=== PATIENT | female | born 1935 | race Caucasian/White ===

== ENCOUNTER 2018-12-25 16:46 | Inpatient (IN) | payer MEDICARE, BC ==
[2018-12-25] MEDS ORDERED: PANTOPRAZOLE 40 MG/10 ML VIAL IVP STA (17:04)
[2018-12-25] MEDS ORDERED: NALOXONE 0.4 MG/ML 1 ML VIAL IV PRN (17:12)
--- NOTE | 2018-12-25 17:17 | ED ---
General Adult HPI - General Chief complaint: GI Bleed Stated complaint: GI Bleed Source: patient, EMS, RN notes reviewed, old records reviewed Mode of arrival: EMS Limitations: no limitations - History of Present Illness Initial comments: 83-year-old female presents as transfer from outside hospital. Patient was found to have anemia, with GI bleed. Patient describes 2 weeks of melanotic stool. She reports some dizziness and lightheadedness. Denies chest pain or shortness of breath. Workup at outside emergency department found an INR of 4.2 and hemoglobin 6.4. Patient does take Coumadin for history of left arm DVT. She was given 2 units of FFP, 2 units of packed RBCs, and 10 mg of vitamin K. Transferred for further evaluation treatment. Patient denies any specific complaints at the time my evaluation. - Related Data Home Medications Medication Instructions Recorded Confirmed DULoxetine HCL [Cymbalta] 30 mg PO DAILY 12/25/18 12/25/18 Donepezil [Aricept] 10 mg PO HS 12/25/18 12/25/18 Metoprolol Tartrate [Lopressor] 25 mg PO BID 12/25/18 12/25/18 Warfarin [Coumadin] 3 mg PO DAILY 12/25/18 12/25/18 Allergies Allergy/AdvReac Type Severity Reaction Status Date / Time Penicillins Allergy Unknown Verified 12/25/18 16:59 Sulfa (Sulfonamide Allergy Unknown Verified 12/25/18 16:59 Antibiotics) Review of Systems ROS Statement: Those systems with pertinent positive or pertinent negative responses have been documented in the HPI. ROS Other: All systems not noted in ROS Statement are negative. Past Medical History Past Medical History: GI Bleed, Hypertension History of Any Multi-Drug Resistant Organisms: None Reported Past Surgical History: Appendectomy, Back Surgery, Cholecystectomy, Hysterectomy, Orthopedic Surgery Smoking Status: Never smoker Past Alcohol Use History: None Reported Past Drug Use History: None Reported General Exam Limitations: no limitations General appearance: alert, in no apparent distress Head exam: Present: atraumatic, normocephalic Eye exam: Present: normal appearance, PERRL ENT exam: Present: normal exam Neck exam: Present: normal inspection Respiratory exam: Present: normal lung sounds bilaterally. Absent: respiratory distress Cardiovascular Exam: Present: regular rate, normal rhythm GI/Abdominal exam: Present: soft. Absent: distended, tenderness, guarding Extremities exam: Present: normal inspection, normal capillary refill Neurological exam: Present: alert, oriented X3, CN II-XII intact. Absent: motor sensory deficit Psychiatric exam: Present: normal affect, normal mood Skin exam: Present: warm, dry, intact. Absent: cyanosis, diaphoretic Course Vital Signs 12/25/18 16:57 Temperature 98.6 F Pulse Rate 76 Respiratory 18 Rate Blood Pressure 198/105 O2 Sat by Pulse 97 Oximetry Medical Decision Making - Medical Decision Making 83 -year-old female presenting with GI bleed, melanotic stool, supratherapeutic INR. Patient was transfused 2 units packed RBCs prior to arrival. She is given 2 units of fresh frozen plasma and 10 mg vitamin K. INR was 4.2 and hemoglobin 6.4 prior to transfer. She is continued on Protonix emergency department. Patient will have repeat laboratory testing in the emergency department, these labs are pending. Repeat laboratory testing will be ordered for the morning. Patient will be admitted with gastroenterology on consult. Case discussed with Dr. Pandya who will accept admission. Disposition Clinical Impression: Melena Disposition: ADMITTED IP TO THIS [facility] Condition: Stable Is patient prescribed a controlled substance at d/c from ED?: No Referrals: Kan Simmons MD [Primary Care Provider] - 1-2 days Decision to Admit Reason: Admit from EC Decision Date: 12/25/18 Decision Time: 17:17
[2018-12-25] MEDS: MORPHINE SULFATE 4 MG/ML SYRINGE IV PRN (17:33)
[2018-12-25] MEDS: SODIUM CHLORIDE 0.9% 1,000 ML IV SCH (17:34)
[2018-12-25 19:01] LABS: Anisocytosis Slight; Basophils % (A) 0 %; Eosinophils # (A) 0.2 k/uL (0-0.7); Eosinophils % (A) 3 %; HCT 24.9 % (34.0-46.0); HGB 8.1 gm/dL (11.4-16.0); Lymphocytes # (A) 1.1 k/uL (1.0-4.8); Lymphocytes % (A) 14 %; MCH 27.6 pg (25.0-35.0); MCHC 32.5 g/dL (31.0-37.0); MCV 84.9 fL (80.0-100.0); Mean Platelet Volume 7.7; Monocytes # (A) 0.5 k/uL (0-1.0); Monocytes % (A) 6 %; Neutrophils # (A) 5.8 k/uL (1.3-7.7); Neutrophils % (A) 75 %; Platelet Count 274 k/uL (150-450); RBC 2.93 m/uL (3.80-5.40); RDW 19.8 % (11.5-15.5); WBC 7.7 k/uL (3.8-10.6)
[2018-12-25 19:10] LABS: Albumin 3.1 g/dL (3.5-5.0); Calcium 8.7 mg/dL (8.4-10.2); Magnesium 1.9 mg/dL (1.6-2.3); Potassium 4.2 mmol/L (3.5-5.1); Total Bilirubin 1.2 mg/dL (0.2-1.3); Total Protein 5.7 g/dL (6.3-8.2)
[2018-12-25 19:17] LABS: INR 2.2 (<1.2); Prothrombin Time 21.5 sec (9.0-12.0)
[2018-12-25 20:36] VITALS: BMI 29.3
[2018-12-25] MEDS: PANTOPRAZOLE 40 MG/10 ML VIAL IVP SCH (21:21)
[2018-12-25] MEDS: METOPROLOL TARTRATE 25 MG TAB PO SCH (21:21)
[2018-12-25] MEDS: DULoxetine HCL 30 MG CAPSULE.DR PO SCH (21:21)
[2018-12-25] MEDS: DONEPEZIL 10 MG TAB PO SCH (21:21)
[2018-12-26] MEDS ORDERED: ACETAMINOPHEN TAB 500 MG TAB PO PRN (00:59)
[2018-12-26] MEDS ORDERED: ALPRAZolam 0.25 MG TAB PO PRN (00:59)
[2018-12-26 02:08] LABS: Anisocytosis Moderate; Basophils % (A) 0 %; Eosinophils # (A) 0.2 k/uL (0-0.7); Eosinophils % (A) 3 %; HCT 25.8 % (34.0-46.0); HGB 8.2 gm/dL (11.4-16.0); Hypochromasia Slight; Lymphocytes # (A) 1.2 k/uL (1.0-4.8); Lymphocytes % (A) 17 %; MCH 27.1 pg (25.0-35.0); MCHC 31.7 g/dL (31.0-37.0); MCV 85.4 fL (80.0-100.0); Mean Platelet Volume 7.7; Monocytes # (A) 0.5 k/uL (0-1.0); Monocytes % (A) 7 %; Neutrophils # (A) 4.9 k/uL (1.3-7.7); Neutrophils % (A) 71 %; Platelet Count 251 k/uL (150-450); RBC 3.02 m/uL (3.80-5.40); RDW 20.3 % (11.5-15.5); WBC 6.9 k/uL (3.8-10.6)
[2018-12-26 06:44] LABS: Anisocytosis Moderate; Basophils % (A) 0 %; Eosinophils # (A) 0.3 k/uL (0-0.7); Eosinophils % (A) 4 %; HCT 25.5 % (34.0-46.0); HGB 8.1 gm/dL (11.4-16.0); Hypochromasia Moderate; Lymphocytes # (A) 1.1 k/uL (1.0-4.8); Lymphocytes % (A) 17 %; MCH 28.2 pg (25.0-35.0); MCV 88.2 fL (80.0-100.0); Mean Platelet Volume 8.1; Monocytes # (A) 0.3 k/uL (0-1.0); Monocytes % (A) 5 %; Neutrophils # (A) 4.5 k/uL (1.3-7.7); Neutrophils % (A) 71 %; Platelet Count 281 k/uL (150-450); RBC 2.89 m/uL (3.80-5.40); RDW 21.4 % (11.5-15.5); WBC 6.4 k/uL (3.8-10.6)
[2018-12-26 06:55] LABS: INR 1.5 (<1.2); Prothrombin Time 15.1 sec (9.0-12.0)
[2018-12-26 07:06] LABS: Albumin 3.2 g/dL (3.5-5.0); Calcium 8.9 mg/dL (8.4-10.2); Potassium 4.2 mmol/L (3.5-5.1); Total Bilirubin 0.9 mg/dL (0.2-1.3); Total Protein 5.8 g/dL (6.3-8.2)
--- NOTE | 2018-12-26 08:42 | HP ---
HISTORY AND PHYSICAL DATE OF SERVICE: 12/25/2018 CHIEF COMPLAINTS: Anemia and melena. HISTORY OF PRESENT ILLNESS: This 83-year-old woman with a past medical history of multiple medical problems including history of hypertension, GI bleed, back surgery, DJD, being followed by Dr. Perez in the [facility], was taking Coumadin for a long time because of the DVT of the left upper limb. The patient went to check for Coumadin level, but patient felt woozy and the patient went to the emergency room and was found to have hemoglobin of 6.4, and INR was 4.2. Patient got fresh frozen plasma and as well as 2 units transfusion as well as 10 mg vitamin K and the patient was transferred to [facility] and admitted for further evaluation and treatment. There is no history of fever, rigors or chills. No history of headache, loss of consciousness, seizures. Patient had some 2 weeks of melanotic stools at this time. The patient did not have any Gastroenterology workup before. There is no history of fever, rigors. No history of headache, loss of consciousness, seizures. PAST MEDICAL HISTORY: Hypertension, history of appendectomy, back surgery, cholecystectomy and hysterectomy. MEDICATIONS: Prior to admission include home medications are: 1. Cymbalta 30 mg q.h.s. 2. Coumadin 3 mg daily. 3. Lopressor 25 mg b.i.d. 4. Aricept 10 mg q.h.s. ALLERGIES: PENICILLIN AND SULFA. FAMILY HISTORY: History of myocardial infarction, breast cancer in the family. SOCIAL HISTORY:: No history of smoking, no history of alcohol. REVIEW OF SYSTEMS: ENT: Diminished hearing and diminished vision. CARDIOVASCULAR: No angina. No palpitations. RESPIRATORY: As mentioned earlier. GI no nausea or vomiting. as mentioned earlier. NERVOUS SYSTEM: No numbness or weakness. Otherwise as mentioned earlier. : As mentioned earlier. ALLERGY/IMMUNOLOGY: No asthma or hayfever. MUSCULOSKELETAL as mentioned earlier. HEMATOLOGY/ONCOLOGY: No history of anemia. ENDOCRINE: No history of diabetes or hypothyroidism. CONSTITUTIONAL: As mentioned earlier . Dermatology: Negative. Rheumatology: Negative. Psychiatry: Negative. PHYSICAL EXAMINATION: Alert and oriented x3, pulse 66, blood pressure 141/75, respiration 18, temperature 98.1, pulse ox 96% on room air. HEENT: Conjunctivae pale. Oral mucosa moist. NECK is no jugular venous distention. No carotid bruit. No lymph node enlargement. Cardiovascular system: S1, S2 muffled. Ejection systolic murmur. RESPIRATORY: Breath sounds diminished in the bases. A few rhonchi. No crackles. ABDOMEN: Soft, nontender. No mass palpable. Legs: No edema. No swelling. CENTRAL NERVOUS SYSTEM: Higher functions as mentioned earlier. Moves all four extremities. No focal motor or sensory deficits. Lymphatics: No lymph nodes palpable in the neck, axillae or groin. SKIN: No ulcer, no rash, no bleeding. JOINTS: No active deforming arthropathy. LAB STUDIES: WBC 7.7, hemoglobin is 8.1. INR is 2.2. Sodium 140, potassium 4.2, creatinine is 1.33. ASSESSMENT: 1. Acute symptomatic anemia, possibly gastrointestinal blood loss, acute on chronic, status post transfusion. 2. Coumadin coagulopathy status post fresh frozen plasma and vitamin K. 3. History of left upper limb deep vein thrombosis. 4. Increased creatinine with chronic kidney disease stage III. 5. History of hypertension. 6. Appendectomy. 7. History of degenerative joint disease. 8. History of cholecystectomy. 9. History of spinal surgery x3. RECOMMENDATIONS AND DISCUSSION: In this 83-year-old woman who presented with multiple complex medical issues, we will monitor the patient closely. Continue the current medications, management and symptomatic treatment. We will monitor hemoglobin and transfuse if hemoglobin less than 7. Gastroenterology consultation. Otherwise I would also recommend resume the home medications. Avoid antiplatelet agents. The overall prognosis guarded because of multiple complex medical issues. Further recommendations to follow. A copy of dictation being forwarded to Dr. Keenan Perez who is the primary care physician. MMODL / LILIANN: [id number] / SANDY
[2018-12-26] MEDS: PANTOPRAZOLE 40 MG/10 ML VIAL IVP SCH ×2 (09:48→20:39)
[2018-12-26] MEDS: METOPROLOL TARTRATE 25 MG TAB PO SCH ×2 (09:48→20:39)
--- NOTE | 2018-12-26 12:00 | CONS ---
CONSULTATION REQUESTING PHYSICIAN: Dr. Kan Simmons. REASON FOR CONSULTATION: Severe anemia and Hemoccult-positive stool. HISTORY OF PRESENTING ILLNESS: The patient is an 83-year-old pleasant white female who was transferred from [facility] when she presented with shortness of breath, weakness, and was noted to have a hemoglobin of 6.4 with an INR of 4.2. She had received 2 units of blood transfusion 2 units of fresh frozen plasma, 10 mg of vitamin K and was transferred to [facility] for further workup. The patient denies any abdominal pain. Reports no rectal bleeding or melena. She states that on and off she has been having dark colored stools. 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 She stated that about 10 years ago she had a GI bleed and she underwent an EGD and colonoscopy at [facility] and was noted to have some colon polyps. Presently, she denies any rectal bleeding or any abdominal pain. No prior history of peptic ulcer disease. Her last colonoscopy more than 10 years ago did show colon polyps. PAST MEDICAL HISTORY: Significant for 1. Hypertension. 2. Hyperlipidemia. PAST SURGICAL HISTORY: Appendectomy, back surgery, cholecystectomy, and hysterectomy. MEDICATIONS: At home, Cymbalta, Coumadin, Lopressor and Aricept. ALLERGIES TO: PENICILLIN, SULFA. SOCIAL HISTORY: No smoking or alcohol use. FAMILY HISTORY: Dad had [place]. Mother had breast cancer. REVIEW OF SYSTEMS: Cardiopulmonary: No chest pain, shortness of breath. Genitourinary: No dysuria or hematuria. Musculoskeletal unremarkable. Skin unremarkable. Endocrine unremarkable. Psychiatric unremarkable. Neurology unremarkable. ENT vision unremarkable. Constitutional: No recent weight loss. No fever, chills, night sweats. PHYSICAL EXAMINATION: She appears comfortable. No apparent distress. Vital signs stable. Blood pressure is 141/75, pulse is 66, temperature 98. HEENT examination unremarkable. Conjunctivae pink. Sclerae anicteric. Oral cavity no lesions. Neck no jugular venous distention or lymph node enlargement. Chest was clear to auscultation. HEART: Regular rate and rhythm. ABDOMEN: Soft, it was nontender, nondistended. Bowel sounds are positive. No organomegaly. Extremities no pedal edema. Skin no rashes. NEUROLOGIC: Alert and oriented x3. No focal deficits. LABS: Done at the time of admission to the hospital hemoglobin was 6.2. INR was 4.5, normal platelets. After 2 units of blood transfusion, hemoglobin is 8.1, MCV is normal. INR today is 1.5. BUN 28, creatinine 1.2. IMPRESSION: This is a lady who presents with presents with severe symptomatic anemia with a hemoglobin of 6.5 requiring 2 units of blood transfusion. 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 She had mild coagulopathy which has been reversed with FFP and fresh frozen plasma. Clinically, she has been having some intermittent dark colored stools for the last few weeks duration. No prior history of peptic ulcer disease. RECOMMENDATIONS: 1. Hold Coumadin. 2. Repeat INR in the morning. 3. Proceed with EGD and colonoscopy tomorrow. Discussed with the patient benefits and complications of procedure and she is agreeable to it. Thank you for this consultation. JF / DAVID: [id number] /
[2018-12-26 12:54] LABS: Anisocytosis Moderate; Basophils % (A) 0 %; Eosinophils # (A) 0.2 k/uL (0-0.7); Eosinophils % (A) 3 %; HCT 27.2 % (34.0-46.0); HGB 8.7 gm/dL (11.4-16.0); Hypochromasia Marked; Lymphocytes # (A) 0.9 k/uL (1.0-4.8); Lymphocytes % (A) 14 %; MCH 28.6 pg (25.0-35.0); MCV 89.2 fL (80.0-100.0); Mean Platelet Volume 8.2; Monocytes # (A) 0.4 k/uL (0-1.0); Monocytes % (A) 6 %; Neutrophils # (A) 4.9 k/uL (1.3-7.7); Neutrophils % (A) 74 %; Platelet Count 286 k/uL (150-450); RBC 3.05 m/uL (3.80-5.40); RDW 21.1 % (11.5-15.5); WBC 6.6 k/uL (3.8-10.6)
--- NOTE | 2018-12-26 14:18 | CONS ---
CONSULTATION DATE OF CONSULTATION: December 26, 2018. REASON FOR CONSULTATION: Coagulopathy. REASON FOR ADMISSION: GI bleed. CHIEF COMPLAINT: Melena. HISTORY OF PRESENT ILLNESS: Mrs. Evans is a very pleasant 83-year-old lady who presented to the emergency room at [facility] when she presented with shortness of breath and was was found to be significantly anemic with hemoglobin down to 6.4 g/dL, and her INR was 4.2, the patient received 2 units of transfusion and 2 units of fresh frozen plasma and 10 mg of vitamin K and then transferred to [facility] for further evaluation. The patient did notice some dark colored stool off and on prior to her presentation, but no hematochezia. There is no nausea or vomiting. There is no fever or chills. No hematuria. No hemoptysis, hematemesis or epistaxis, but she does have excess bruises on her upper extremities. The patient ended up being admitted to [facility] and she has been seen by gastroenterology and the plan to proceed with EGD and colonoscopy tomorrow. The patient did have a colonoscopy over 10 years ago and she was found to have colon polyps and hemorrhoids at that time. In regard to her use of Coumadin, she has been on Coumadin for 30 years. She stated that according to the patient and her daughter who was present at bedside, she had a blood clot involving her left forearm and there was a questionable blood clot in her lower extremity about 30 years ago and that was the only thrombotic event and she has been kept on Coumadin since then. Denies using the anticoagulation for cardiac issues such as atrial fibrillation or cardiomyopathy. Family history is negative for deep venous thrombosis and pulmonary emboli. PAST MEDICAL HISTORY: As stated above in regard to blood clot in her left forearm. The patient was very specific that the blood clot was involving her left forearm only and she is not aware of DVT in her lower extremity and she denied any recurrent thrombosis or pulmonary emboli in the past as well. She also has a history of hypertension, hyperlipidemia. PAST SURGICAL HISTORY: She had cholecystectomy, hysterectomy and appendectomy in the past. FAMILY HISTORY: Her mother had breast cancer. Her father had a myocardial infarction. No DVT or PE in her family. SOCIAL HISTORY: No history of smoking, alcohol abuse or substance abuse. ALLERGY: She is allergic to PENICILLIN and SULFA. HOME MEDICATION: Lopressor, Aricept, Coumadin, and Cymbalta. REVIEW OF SYSTEMS: As stated above in the history of present illness, otherwise negative. PHYSICAL EXAMINATION: She is alert and oriented x3. She does not appear to be in distress at this point in time. Her vital signs are temperature 98.0, pulse 66, respiration 15, blood pressure 138/69. HEENT: Normocephalic, atraumatic. No obvious scleral icterus. NECK: Supple. No jugular venous distention. Chest equal expansion bilaterally. LUNGS: Clear to auscultation and percussion. Heart is regular rate and rhythm. ABDOMEN: Soft. No obvious organomegaly or masses. Bowel sounds present. Extremities reveal trace edema in her legs. Skin reveals a few bruises on upper extremities. Lymphatics no peripheral cervical, supraclavicular nodes. LABORATORY DATA: WBC of 6.6, hemoglobin 8.7, hematocrit is 27.2, platelet count 258. Her INR now is 1.5. Sodium 141, potassium 4.2, chloride 111, CO2 is 23, BUN 28, creatinine 1.22. IMPRESSION: 1. Coagulopathy complicated by gastrointestinal bleed. This is related to the chronic use of anticoagulation. I do not see any clear indication that the patient would require to continue anticoagulation. She has been on warfarin for 30 years for a reported blood clot in her left forearm. Per the patient, and per her daughter who was present at bedside, there has been no issue with recurrent deep vein thrombosis or pulmonary embolism in the past in the past. 2. Anemia secondary to above. RECOMMENDATIONS: 1. I would recommend to discontinue anticoagulation at this point in time, unless there is a cardiac indication that she would require to be anticoagulated such as atrial fibrillation. The patient is not aware that she has a cardiac reason to be anticoagulated and the patient and her daughter are not aware of any cardiac indication that would require anticoagulation. 2. I agree with planned EGD and colonoscopy for tomorrow. 3. We will obtain iron panel and likely the patient is iron deficient and this would require replacement. The above was discussed in detail with the patient and her daughter at bedside and I have answered all their questions to their satisfaction. Thank you very much for asking me to participate in the care of this nice lady. MMODL / LILIANN: [id number] /
[2018-12-26] MEDS ORDERED: PEG 3350-NA SULF,BICARB,CL/KCL 4,000 ML BOTTLE PO ONE (16:00)
[2018-12-26 18:53] LABS: Anisocytosis Moderate; Basophils % (A) 0 %; Eosinophils # (A) 0.3 k/uL (0-0.7); Eosinophils % (A) 3 %; HCT 30.3 % (34.0-46.0); HGB 9.7 gm/dL (11.4-16.0); Hypochromasia Slight; Lymphocytes # (A) 1.6 k/uL (1.0-4.8); Lymphocytes % (A) 17 %; MCH 27.9 pg (25.0-35.0); MCV 87.1 fL (80.0-100.0); Mean Platelet Volume 7.8; Monocytes # (A) 0.7 k/uL (0-1.0); Monocytes % (A) 8 %; Neutrophils # (A) 6.7 k/uL (1.3-7.7); Neutrophils % (A) 70 %; Platelet Count 306 k/uL (150-450); RBC 3.48 m/uL (3.80-5.40); RDW 20.2 % (11.5-15.5); WBC 9.6 k/uL (3.8-10.6)
[2018-12-26] MEDS: SODIUM CHLORIDE 0.9% 1,000 ML IV SCH (19:36)
[2018-12-26] MEDS: DONEPEZIL 10 MG TAB PO SCH (20:39)
[2018-12-26] MEDS: DULoxetine HCL 30 MG CAPSULE.DR PO SCH (20:39)
[2018-12-26 22:59] LABS: Iron Saturation 9.17 (12.00-45.00)
[2018-12-26 23:10] LABS: Folate, Serum 17.9 ng/mL
--- NOTE | 2018-12-26 23:51 | PN ---
PROGRESS NOTE DATE OF SERVICE: 12/26/2018 This 83-year-old woman was admitted with anemia. Also had Coumadin coagulopathy. The patient received multiple transfusions for possible vitamin K at this time. The patient hemoglobin is stable to 9.7 at this time. No further bleeding is noted. EGD/colonoscopy is being planned at this time tomorrow. No chest pain. No palpitations. No fever. EXAM: Alert and oriented times three. Pulse is 70. Blood pressure 130/70, respiration 16, temperature 98 degrees, pulse ox 94% on room air. HEENT: Conjunctivae normal. NECK: No jugular venous distention. CARDIOVASCULAR: S1, S2 muffled. RESPIRATORY: Breath sounds diminished in the bases. No rhonchi. No crackles. ABDOMEN: Soft, nontender. LEGS: No edema, No swelling. CENTRAL NERVOUS SYSTEM: No focal deficits. LAB STUDIES: WBC 7.2, hemoglobin 9.7. ASSESSMENT: 1. Acute symptomatic anemia possible gastrointestinal blood loss with acute on chronic, status post transfusion. 2. Coumadin coagulopathy status post fresh frozen plasma and vitamin K. 3. History of left upper limb deep vein thrombosis. 4. Increased creatinine with chronic kidney stage 3. 5. Hypertension. 6. History of appendectomy. 7. History of degenerative joint disease. 8. History of cholecystectomy. 9. History of spinal surgery x3. RECOMMENDATIONS AND DISCUSSION: Recommend to continue current medications, management and symptomatic treatment. Otherwise, at this time, I recommend monitor closely. Hemoglobin is rather stable. Otherwise, gastroenterology evaluation, colonoscopy, as well as EGD. Guarded prognosis. Further recommendations to follow. MMODL / IJN: [id number] /
[2018-12-27 01:01] LABS: Anisocytosis Moderate; Basophils % (A) 0 %; Eosinophils # (A) 0.3 k/uL (0-0.7); Eosinophils % (A) 3 %; HGB 8.8 gm/dL (11.4-16.0); Hypochromasia Slight; Lymphocytes % (A) 13 %; MCH 27.2 pg (25.0-35.0); MCHC 31.5 g/dL (31.0-37.0); MCV 86.4 fL (80.0-100.0); Mean Platelet Volume 8.1; Monocytes # (A) 0.6 k/uL (0-1.0); Monocytes % (A) 8 %; Neutrophils # (A) 5.9 k/uL (1.3-7.7); Neutrophils % (A) 74 %; Platelet Count 274 k/uL (150-450); RBC 3.24 m/uL (3.80-5.40); RDW 20.2 % (11.5-15.5); WBC 7.9 k/uL (3.8-10.6)
[2018-12-27] MEDS: METOPROLOL TARTRATE 25 MG TAB PO SCH ×2 (07:40→20:33)
[2018-12-27] MEDS: MORPHINE SULFATE 4 MG/ML SYRINGE IV PRN ×2 (07:40→18:23)
[2018-12-27] MEDS: PANTOPRAZOLE 40 MG/10 ML VIAL IVP SCH ×2 (07:40→20:33)
[2018-12-27 09:19] LABS: Anisocytosis Moderate; Basophils % (A) 0 %; Eosinophils # (A) 0.2 k/uL (0-0.7); Eosinophils % (A) 4 %; HCT 26.4 % (34.0-46.0); HGB 8.5 gm/dL (11.4-16.0); Hypochromasia Slight; Lymphocytes # (A) 0.9 k/uL (1.0-4.8); Lymphocytes % (A) 14 %; MCH 28.3 pg (25.0-35.0); MCHC 32.4 g/dL (31.0-37.0); MCV 87.6 fL (80.0-100.0); Mean Platelet Volume 8.7; Monocytes # (A) 0.5 k/uL (0-1.0); Monocytes % (A) 7 %; Neutrophils # (A) 4.8 k/uL (1.3-7.7); Neutrophils % (A) 73 %; Platelet Count 295 k/uL (150-450); RBC 3.01 m/uL (3.80-5.40); RDW 21.1 % (11.5-15.5); WBC 6.6 k/uL (3.8-10.6)
[2018-12-27 09:23] LABS: INR 1.2 (<1.2)
[2018-12-27 09:24] LABS: Prothrombin Time 12.1 sec (9.0-12.0)
[2018-12-27 09:40] LABS: Calcium 8.9 mg/dL (8.4-10.2); Potassium 3.9 mmol/L (3.5-5.1)
[2018-12-27] MEDS ORDERED: IV FLUID CONTINUATION 1,000 ML IV ONE (10:01)
[2018-12-27] MEDS ORDERED: PROPOFOL 10 MG/ML 20 ML VIAL IV ONE (10:01)
[2018-12-27] MEDS ORDERED: LIDOCAINE 1% INJ 10MG/ML (20 ML MDV) ONE (10:01)
--- NOTE | 2018-12-27 10:27 | P.PCN ---
Date of Procedure: 12/27/18 Procedure(s) Performed: Brief history: Patient is a pleasant 83-year-old white female, admitted to the hospital with anemia with a hemoglobin of 6.5 g/dL. She is been having intermittent black tarry stools for the last 2 weeks' duration. She'll be on Coumadin for recurrent DVT of the left approximately and INR was 4.5 each was reversed with vitamin K and fresh frozen plasma. This morning INR is 1.2. She is scheduled for an upper endoscopy as well as colonoscopy as a part of evaluation of anemia and black tarry stools. Procedure performed: Esophagogastroduodenoscopy with biopsy Colonoscopy Preoperative diagnosis: Anemia and black tarry stools Anesthesia: MAC Procedure: After informed consent was obtained from the patient was brought into the endoscopy unit and IV sedation was administered by anesthesia under continuous monitoring. Initially upper endoscopy was done. The Olympus GF 160 video endoscope was inserted inserted into the mouth and esophagus intubated without any difficulty and was gradually advanced into the stomach and duodenum and carefully examined. The bulb and second part of the duodenum appeared normal. The scope was then withdrawn into the stomach adequately insufflated with air and upon careful examination the antrum had scattered erosions and a small 5 mm superficial ulceration that was biopsied. The body, cardia and fundus appeared normal. The scope was then withdrawn into the esophagus. Moderate size hiatal hernia noted. The GE junction was located at 33 cm to the incisors. It appeared regular with no erythema erosions or ulcerations. Rest of the esophagus appeared normal. Patient tolerated the procedure well. At this time the patient continued to remain sedation. Initial digital rectal examination was normal. Olympus CF 160 video colonoscope was then inserted into the rectum and gradually advanced to the cecum without any difficulty. Careful examination was performed as the scope was gradually being withdrawn. The prep was excellent. The cecum, ascending colon, transverse colon, descending colon, sigmoid colon and rectum appeared normal. Small Diverticulosis Seen Retroflexion was performed in the rectum and no lesions were noted. Patient tolerated the procedure well. Impression: 1. Upper endoscopy revealed small superficial antral ulcer ,antral erosive gastritis, small hiatal hernia 2. Colonoscopy revealed scattered sigmoidal diverticulosis but no evidence of colitis or colorectal neoplasia Recommendations: Findings of this examination were discussed with the patient as well as her family. She will continue with Protonix 40 mg daily and avoid NSAIDs. She can resume Coumadin today. Diet will be advanced as tolerated
[2018-12-27 14:17] LABS: Anisocytosis Moderate; Basophils % (A) 0 %; Eosinophils # (A) 0.3 k/uL (0-0.7); Eosinophils % (A) 3 %; HCT 27.6 % (34.0-46.0); HGB 8.8 gm/dL (11.4-16.0); Hypochromasia Slight; Lymphocytes # (A) 0.9 k/uL (1.0-4.8); Lymphocytes % (A) 9 %; MCH 27.8 pg (25.0-35.0); MCHC 31.9 g/dL (31.0-37.0); MCV 87.2 fL (80.0-100.0); Mean Platelet Volume 7.8; Monocytes # (A) 0.6 k/uL (0-1.0); Monocytes % (A) 6 %; Neutrophils # (A) 7.7 k/uL (1.3-7.7); Neutrophils % (A) 80 %; Platelet Count 309 k/uL (150-450); RBC 3.17 m/uL (3.80-5.40); RDW 20.3 % (11.5-15.5); WBC 9.6 k/uL (3.8-10.6)
[2018-12-27] MEDS: SODIUM CHLORIDE 0.9% 1,000 ML IV SCH (15:10)
[2018-12-27 20:29] LABS: Anisocytosis Moderate; Basophils % (A) 0 %; Eosinophils # (A) 0.2 k/uL (0-0.7); Eosinophils % (A) 2 %; HCT 28.4 % (34.0-46.0); HGB 9.1 gm/dL (11.4-16.0); Hypochromasia Slight; Lymphocytes # (A) 0.9 k/uL (1.0-4.8); Lymphocytes % (A) 8 %; MCH 28.1 pg (25.0-35.0); MCHC 32.2 g/dL (31.0-37.0); MCV 87.4 fL (80.0-100.0); Mean Platelet Volume 7.9; Monocytes # (A) 0.6 k/uL (0-1.0); Monocytes % (A) 6 %; Neutrophils # (A) 8.4 k/uL (1.3-7.7); Neutrophils % (A) 82 %; Platelet Count 319 k/uL (150-450); RBC 3.25 m/uL (3.80-5.40); RDW 20.1 % (11.5-15.5); WBC 10.3 k/uL (3.8-10.6)
[2018-12-27] MEDS: HYDROcodone/APAP 5-325MG 1 EACH TAB PO PRN (20:32)
[2018-12-27] MEDS: DONEPEZIL 10 MG TAB PO SCH (20:32)
[2018-12-27] MEDS: DULoxetine HCL 30 MG CAPSULE.DR PO SCH (20:33)
[2018-12-27 21:42] VITALS: RESP 18
--- NOTE | 2018-12-27 23:28 | PN ---
PROGRESS NOTE DATE OF SERVICE: 12/27/2018 This 83-year-old woman who was admitted with acute symptomatic anemia, underwent EGD and colonoscopy by Dr. Alcocer and upper endoscopy revealed small superficial antral ulcer and erosive gastritis and colonoscopy revealed scattered sigmoid diverticulosis with no evidence of any colitis or any colorectal neoplasia. Patient being closely monitored. No chest pain. No palpitations. No fever. EXAM: Alert and oriented times three. Pulse 51, blood pressure 190/84, respiration 20, temperature 98.2, pulse ox 93 percent on room air. HEENT: Conjunctivae normal. Neck is no jugular venous distention. Cardiovascular systems: S1, S2 muffled. Respirations: Breath sounds diminished the bases. A few scattered rhonchi and crackles. Abdomen is soft, nontender. Legs are no edema, no swelling. CENTRAL NERVOUS SYSTEM: No focal deficits. LAB STUDIES: WBC 10.9, hemoglobin 9.1. BMP noted. ASSESSMENT: 1. Acute symptomatic anemia possible gastrointestinal bleed with acute on chronic, status post transfusions and status post EGD showing small superficial antral ulcers with antral erosive gastritis and small hiatal hernia. 2. Coumadin coagulopathy status post of vitamin K. 3. History of left upper arm deep vein thrombosis. 4. Increased creatinine with chronic kidney disease stage III. 5. Hypertension. 6. History of appendectomy. 7. History of degenerative joint disease. 8. History of cholecystectomy. 9. History of spinal surgery x3. RECOMMENDATIONS AND DISCUSSION: Recommend to continue current medications, management and symptomatic treatment. Hold Coumadin. Repeat labs in the morning. Advance diet per Gastroenterology. Otherwise, we will continue to monitor. Prognosis guarded. Further recommendations to follow. MMODL / IJN: [id number] / [facility]
[2018-12-28 07:10] LABS: Anisocytosis Moderate; Basophils % (A) 0 %; Eosinophils # (A) 0.2 k/uL (0-0.7); Eosinophils % (A) 3 %; HGB 8.4 gm/dL (11.4-16.0); Lymphocytes # (A) 1.2 k/uL (1.0-4.8); Lymphocytes % (A) 17 %; MCH 28.2 pg (25.0-35.0); MCHC 32.4 g/dL (31.0-37.0); MCV 87.1 fL (80.0-100.0); Mean Platelet Volume 8.1; Monocytes # (A) 0.6 k/uL (0-1.0); Monocytes % (A) 10 %; Neutrophils # (A) 4.5 k/uL (1.3-7.7); Neutrophils % (A) 67 %; Platelet Count 287 k/uL (150-450); RBC 2.99 m/uL (3.80-5.40); RDW 20.3 % (11.5-15.5); WBC 6.7 k/uL (3.8-10.6)
[2018-12-28 07:18] LABS: Prothrombin Time 10.9 sec (9.0-12.0)
[2018-12-28 07:27] LABS: Calcium 8.8 mg/dL (8.4-10.2); Potassium 3.8 mmol/L (3.5-5.1)
[2018-12-28] MEDS: METOPROLOL TARTRATE 25 MG TAB PO SCH (07:32)
[2018-12-28] MEDS: PANTOPRAZOLE 40 MG/10 ML VIAL IVP SCH (07:32)
[2018-12-28] MEDS: HYDROcodone/APAP 5-325MG 1 EACH TAB PO PRN (07:33)
[2018-12-28] MEDS ORDERED: SODIUM FERRIC GLUCONAT-SUCROSE 125 MG in SODIUM CHLORIDE 0.9% 100 ML IVPB SCH (11:00)
[2018-12-28 11:04] VITALS: BP 148/70; PULSE 63; TEMP 98.2
--- NOTE | 2018-12-28 11:45 | CDI ---
Documentation Clarification Form Date: 12/29/2018 11:37:19 AM From: Jewels NicholeSantizoPAULINO patel, CCDS Admit Date: 12/25/2018 5:12:00 PM Patient Name: Angie Evans Visit Number: [id number] Discharge Date: ATTENTION: The Clinical Documentation Specialists (CDI) and [facility] Coding Staff appreciate your assistance in clarifying documentation. Please respond to the clarification below the line at the bottom and electronically sign. The CDI & [facility] Coding staff will review the response and follow-up if needed. Please note: Queries are made part of the Legal Health Record. If you have any questions, please contact the author of this message via ITS. Dr. Auerlio Lozoya: A diagnosis of anemia lacks specificity to accurately reflect your patients severity of condition and clarification is needed. 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 Hypertension & CKD III, Cholecystectomy, Hysterectomy & Appendectomy. Clinical indicators: Presented to outside facility with anemia, melena, GI bleed, dizziness & lightheaded. Received 2 units FFP & 2 units PRBCs & Vitamin K prior to transfer to [facility]. Hemoglobin: (6.4 at other facility), 8.1 - 9.7 Hematocrit: 24.9 - 30.3 Treatment: Transfusions at outside facility, Vit K, IV Protonix, IV Morphine, IV Narcan, IV fl 20. EGD & Colonoscopy: Small superficial antral ulcer, antral erosive gastritis, small hiatal hernia & scattered sigmoidal diverticulosis. In order to capture the severity of condition, please clarify the type of anemia and etiology if known: Acute blood loss anemia Acute on chronic blood loss anemia Chronic blood loss anemia Iron deficiency anemia Hemolytic anemia Drug induced anemia Nutritional anemia Anemia of chronic kidney disease Unable to determine Other, please specify (Last Revision: June 2017) MTDD
--- NOTE | 2018-12-28 16:59 | P.PN ---
Subjective Progress Note Date: 12/28/18 Principal diagnosis: coagulopathy, iron deficient anemia In f/u today pt is feeling good, she is looking forward to going home, denies nausea, hematuria, hematochezia, melena, she is independently ambulatory, no NOHEMI Objective - Vital Signs Vital signs: Vital Signs Temp 98.2 F 12/28/18 11:01 Pulse 63 12/28/18 11:04 Resp 18 12/28/18 11:04 BP 148/70 12/28/18 11:01 Pulse Ox 96 12/28/18 11:01 Intake & Output 12/27/18 12/28/18 12/28/18 18:59 06:59 18:59 Intake Total 1110 320 840 Balance 1110 320 840 Weight 77.6 kg Intake: IV 650 320 220 Invasive Line 1 10 Invasive Line 2 10 Invasive Line 3 10 20 Sodium Chloride 0.9% 1, 120 320 100 000 ml @ 20 mls/hr IV . Q24H DALIA Rx#:[id number] Sodium Ferric Gluconat- 100 Sucrose 125 mg In Sodium Chloride 0.9% 100 ml @ 100 mls/hr IVPB DAILY [facility]AL[facility] Rx#:[id number] Oral 460 620 Other: Voiding Method Toilet Toilet Toilet # Voids 1 - Constitutional General appearance: Present: average body habitus, cooperative, no acute distress - EENT Eyes: Present: anicteric sclerae, EOMI ENT: Present: hearing grossly normal - Respiratory Respiratory: bilateral: CTA - Cardiovascular Rhythm: regular Heart sounds: normal: S1, S2 Abnormal Heart Sounds: Absent: systolic murmur, diastolic murmur, rub, S3 Gallop, S4 Gallop, click, other - Peripheral edema leg Peripheral Edema: bilateral: None - Gastrointestinal General gastrointestinal: Present: normal bowel sounds, soft - Integumentary Integumentary: Present: normal - Neurologic Neurologic: Present: CNII-XII intact - Musculoskeletal Musculoskeletal: Present: strength equal bilaterally - Psychiatric Psychiatric: Present: A&O x's 3, appropriate affect, intact judgment & insight - Labs CBC & Chem 7: 12/28/18 06:25 12/28/18 06:25 Labs: Abnormal Lab Results - Last 24 Hours (Table) 12/27/18 12/28/18 12/28/18 Range/Units 20:09 06:25 06:25 RBC 3.25 L 2.99 L (3.80-5.40) m/uL Hgb 9.1 L 8.4 L (11.4-16.0) gm/dL Hct 28.4 L 26.0 L (34.0-46.0) % RDW 20.1 H 20.3 H (11.5-15.5) % Neutrophils # 8.4 H (1.3-7.7) k/uL Lymphocytes # 0.9 L (1.0-4.8) k/uL Chloride 110 H (98-107) mmol/L Creatinine 1.15 H (0.52-1.04) mg/dL Glucose 111 H (74-99) mg/dL Assessment and Plan (1) Coagulopathy Status: Acute Priority: High Code(s): D68.9 - COAGULATION DEFECT, UNSPE CIFIED SNOMED Code(s): 28931611 (2) Iron deficiency anemia due to chronic blood loss Status: Acute Priority: High Code(s): D50.0 - IRON DEFICIENCY ANEMIA SECONDARY TO BLOOD LOSS (CHRONIC) SNOMED Code(s): 891335576 Plan: Pt has been discontinued off of anticoagulation. EGD/Colonoscopy today-pending results, f/u with GI as appropriate Iron deficiency. Parenteral dose today. Told pt to continue oral BID. F/U in 1 mo to recheck iron studies.
--- NOTE | 2018-12-29 05:36 | DS ---
DISCHARGE SUMMARY DATE OF SERVICE: 12/28/2018 FINAL DIAGNOSES: 1. Acute blood loss anemia. 2. Acute symptomatic anemia possible gastrointestinal bleed with acute on chronic, status post transfusion and EGD showing small superficial antral ulcers with antral erosive gastritis and small hiatal hernia. 3. Coumadin coagulopathy status post fresh frozen plasma and vitamin K. 4. History of left upper limb deep venous thrombosis in the remote past. 5. Increased creatinine with chronic kidney disease stage 3. 6. Hypertension. 7. Coumadin monitoring. 8. History of appendectomy. 9. History of degenerative joint disease. 10.History of cholecystectomy. 11.History of spinal surgery x3. DISCHARGE DISPOSITION: The patient will be discharged in stable condition with guarded prognosis. HISTORY OF PRESENT ILLNESS: This 83-year-old woman with a past medical history of multiple medical problems as mentioned earlier was admitted with significant anemia referred from elsewhere. The patient was given fresh frozen plasma and vitamin K to reverse the Coumadin coagulopathy. Hemoglobin was found to be very low at less than 7 in the hospital. After transfusion, the hemoglobin improved to 8.2. Patient also given iron also. The patient is stabilized at this time. There is no history of any fever, rigors, chills at this time. The patient underwent EGD by Dr. Wilhelm with the above-mentioned findings. Recommend conservative line of management. On exam, vitals are stable. CARDIOVASCULAR: S1, S2 muffled. ABDOMEN: Soft. NERVOUS SYSTEM: No focal deficits. Currently hemoglobin is 9.7. The patient will be discharged in stable condition with guarded prognosis. DISCHARGE ADVICE: 1. Diet is cardiac. 2. Activity limited until followup. 3. Follow up with Dr. Michelle Camejo in 2 to 3 days with CBC, BMP. 4. Follow up with Dr. Yg Alcocer as recommended. MEDICATIONS: 1. Hold Coumadin for now to be re-evaluated in the outpatient setting. 2. Otherwise, Aricept 10 mg q.h.s. 3. Cymbalta 30 mg q.h.s. 4. Lopressor 25 mg p.o. b.i.d. 5. Protonix 40 mg p.o. b.i.d. MMODL / IJN: [id number] / MTDD
== END 2018-12-28 14:21 | disposition home or self-care (01) | DRG 378 ==
LOC: EC 16:46 → 3SCARD 17:12
PROVIDERS: ADMIT Internal Medicine; ATTEND Internal Medicine
PROC: 0DB78ZX Excision of Stomach, Pylorus, Via Natural or Artificial Opening Endoscopic, Diagnostic (ICD-10-PCS; principal; 2018-12-27 09:02)
PROC: 0DJD8ZZ Inspection of Lower Intestinal Tract, Via Natural or Artificial Opening Endoscopic (ICD-10-PCS; 2018-12-27 09:02)
DX: K25.4 Chronic or unspecified gastric ulcer with hemorrhage (principal); D62 Acute posthemorrhagic anemia; D68.32 Hemorrhagic disorder due to extrinsic circulating anticoagulants; K29.71 Gastritis, unspecified, with bleeding; K44.9 Diaphragmatic hernia without obstruction or gangrene; T45.515A Adverse effect of anticoagulants, initial encounter; E78.5 Hyperlipidemia, unspecified; I12.9 Hypertensive chronic kidney disease with stage 1 through stage 4 chronic kidney disease, or unspecified chronic kidney disease; Z86.718 Personal history of other venous thrombosis and embolism; Z79.01 Long term (current) use of anticoagulants; K57.30 Diverticulosis of large intestine without perforation or abscess without bleeding; Z86.010 Personal history of colon polyps; N18.3 Chronic kidney disease, stage 3 (moderate); Z80.3 Family history of malignant neoplasm of breast; Z82.49 Family history of ischemic heart disease and other diseases of the circulatory system; Z90.710 Acquired absence of both cervix and uterus; Z88.1 Allergy status to other antibiotic agents; Z88.2 Allergy status to sulfonamides; M19.90 Unspecified osteoarthritis, unspecified site; Z90.49 Acquired absence of other specified parts of digestive tract
CPT/HCPCS: 43239; 45378; 80048; 80053; 82607; 82728; 82746; 83540; 83550; 83735; 85025; 85610; 85730; 86850; 86900; 86901; 88305; 96374; 96375; 99285